=== PATIENT | female | born 1990 | race Two or more races ===

== ENCOUNTER 2024-10-10 00:25 | Emergency (ER) | payer OTHER ==
[~2024-10-10] VITALS: Ht 167.6 cm; Wt 160.0 kg
[2024-10-10 00:41] VITALS: BP 130/93; PULSE 77; RESP 12; TEMP 98.7; O2SAT 97
--- NOTE | 2024-10-10 01:41 | ED.PDOC ---
History of Present Illness EXP HPI Comments PATIENT COMES WITH C/C OF EXPOSURE TO PATIENT BLOOD. 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 PATIENT IS HERE FOR POST EXPOSURE CHECK UP Chief Complaint: Post Exposure Time Seen by MD: 00:52 Reviewed Notes: Nurses Notes, Medications, Allergies Information Source: Patient Mode of Arrival: Ambulatory Past Medical History PAST MEDICAL HISTORY: Denies Surgical History: Denies all surgeries NATURAL RESOURCES MANAGER History: No Pertinent NATURAL RESOURCES MANAGER History Family History Family History: Unknown Social History Smoker: Non-Smoker Alcohol: Denies ETOH Use Drugs: Denies Drug Use Constitutional: denies: chills, diaphoresis, fatigue, fever, malaise, sweats, weakness, others EENTM: denies: blurred vision, double vision, ear bleeding, ear discharge, ear drainage, ear pain, ear ringing, eye pain, eye redness, hearing loss, mouth pain, mouth swelling, nasal discharge, nose bleeding, nose congestion, nose pain, photophobia, tearing, throat pain, throat swelling, voice changes, others Respiratory: denies: cough, hemoptysis, orthopnea, SOB at rest, shortness of breath, SOB with excertion, stridor, wheezing, others Cardiovascular: denies: chest pain, dizzy spells, diaphoresis, Dyspnea on exertion, edema, irregular heart beat, left arm pain, lightheadedness, palp itations, PND, syncope, others Gastrointestinal: denies: abdomen distended, abdominal pain, blood streaked bowels, constipated, diarrhea, dysphagia, difficulty swallowing, hematemesis, melena, nausea, poor appetite, poor fluid intake, rectal bleeding, rectal pain, vomiting, others Genitourinary: denies: abnormal vagina bleeding, burning, dyspareunia, dysuria, flank pain, frequency, hematuria, incontinence, pain, , vagina discharge, urgency, others Neurological: denies: dizziness, fainting, headache, left sided numbness, left sided weakness, numbness, paresthesia, pre-existing deficit, right sided numbness, right sided weakness, seizure, speech problems, tingling, tremors, weakness, others Musculoskeletal: denies: back pain, gout, joint pain, joint swelling, muscle pain, muscle stiffness, neck pain, others Integumetry: denies: bruises, change in color, change in hair/nails, dryness, laceration, lesions, lumps, rash, wounds, others Allergic/Immunocompromised: denies: Difficulty Healing, Frequent Infections, Hives, Itching, others Hematologic/Lymphatic: denies: anemia, blood clots, easy bleeding, easy br uising, swollen glands, others Endocrine: denies: excessive hunger, excessive sweating, excessive thirst, excessive urination, flushing, intolerance to cold, intolerance to heat, unexplained weight gain, unexplained weight loss, others Psychiatric: denies: anxiety, bipolar disorder, depression, hopeless, panic disorder, schizophrenia, sleepless, suicidal, others Physical Exam General Appearance: No Apparent Distress, Normal HEENT: Normal ENT Inspection, Pharynx Normal, TMs Normal Neck: Full Range of Motion, Non-Tender, Normal, Normal Inspection Respiratory: Lungs Clear, No Respiratory Distress, Normal Breath Sounds Cardiovascular: No Edema, No JVD, No Murmur, No Gallop, Normal Peripheral Pulses, Regular Rate/Rhythm Breast Exam: Deferred Gastrointestinal: Non Tender, Soft Genitalia: Deferred Pelvic: Deferred Rectal: Deferred Extremities: Normal capillary refill, Normal inspection, Normal range of motion, Non-tender, No pedal edema Musculoskeletal : Apperance: Normal Neurologic: Alert, teacher of the sight impaired II-XII nml as Tested, No Motor Deficits, Normal Affect, Normal Mood, No Sensory Deficits Cerebellar Function: Normal Reflexes: Normal Skin: Dry, Normal Color, Warm Lymphatic: No Adenopathy Was a procedure done? Was a procedure done?: No Differential Diagnosis (EXP) Differential Diagnosis: Body fluid exposure, Infect. Disease exposure X-Ray, Labs, Meds, VS Vital Signs Date Time Temp Pulse Resp B/P (MAP) Pulse Ox O2 Delivery O2 Flow Rate FiO2 10/10/24 00:41 98.7 77 12 130/93 (105) 97 98.7 10/10/24 00:41 98.7 77 12 130/93 (105) 97 98.7 10/10/24 00:41 Room Air Lab Test 10/10/24 01:09 Range/Units Hepatitis B Surface Antigen Pending Hepatitis B Surface Antibody Positive H Negative Hepatitis C Antibody Pending HIV (1&2) Antibody Negative Negative X-Ray, Labs, Meds, VS Comment CHEST X-RAY SHOWS NO ACUTE OR CHRONIC DISEASE CARDIO PULMONARY FINDINGS. 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 ADVISED TO FOLLOW UP WITH [facility] TO OBTAIN RECORDS OF HER RESULTS INTERVAL REPEAT TESTING. DISCUSSED POST EXPOSURE HIV MEDICATION ADVISED HER OF THE RISKS AND BENEFITS PATIENT DECLINED TO START THEM AT THIS TIME. ADVISED THAT SHE HAS NOT LEAST 72 HOURS TO DECIDE TO START THE MEDICATIONS. ER RETURN PRECAUTIONS GIVEN PATIENT INDICATES UNDERSTANDING AGREES WITH DISCHARGE PLAN OF CARE Time of 1ST Reevaluation: 01:38 Reevaluation 1ST: Unchanged Time of 2ND Reevaluation: 02:46 Reevaluation 2ND: Improved Patient Education/Counseling: Diagnosis, Treatment, Prognosis, Need For Follow Up Family Education/Counseling: Diagnosis, Treatment, Prognosis, Need For Follow Up Departure 1 Departure Time of Disposition: 02:46 Impression: Primary Impression: Employee exposure to body fluids Disposition: 01 HOME / SELF CARE / HOMELESS Condition: Stable Discharged With: Self Critical Care Note Critical Care Time?: No Stability Stability form required: SPENCER Sanchez Oct 10, 2024 01:41
[2024-10-10 02:16] LABS: Hepatitis B Surface Antibody Positive (Negative)
--- NOTE | 2024-10-10 02:43 | DVH ---
CHEST RADIOGRAPH Indication: POST EXPOSURE Technique: Frontal and lateral view of the chest was obtained Comparison: None FINDINGS: Lines and Tubes: None Lungs: Clear Pleura: No effusion. No pneumothorax. Cardiomediastinal contours: Unremarkable Bones: Unremarkable IMPRESSION: 1. No evidence of acute disease.
[2024-10-10 02:52] LABS: Hepatitis B Surface Antigen Negative (Negative)
== END 2024-10-10 03:01 | disposition home or self-care (01) ==
LOC: ER 00:25
DX: Z77.21 Contact with and (suspected) exposure to potentially hazardous body fluids (principal)
CPT/HCPCS: 36415; 71046; 86703; 86706; 86803; 87340